=== PATIENT | male | born 1980 | race African-American/Black ===

== ENCOUNTER → 2016-09-22 | Outpatient (CLI) | payer OTHER ==
--- NOTE | 2016-09-22 13:25 | RAD ---
Right hip, 2 views, 09/22/2016: History: Hip and back pain No fracture or dislocation is identified. The right hip joint space is well-preserved. The periarticular soft tissues are unremarkable. IMPRESSION: No significant right hip abnormality is detected. Lumbar spine, 2 views, 09/22/2016: There is a mild right convexity thoracolumbar scoliosis. The lumbar vertebral heights are well-maintained. The left transverse process at L5 partially articulates with the upper aspect of the sacrum. The intervertebral disc spaces are well-maintained. The paraspinous soft tissues are unremarkable. IMPRESSION: 1. Mild thoracolumbar scoliosis. 2. Transitional-type vertebra at the lumbosacral junction. 3. No acute abnormality is detected.
== END | disposition home or self-care (01) ==
LOC: RAD 10:52
PROVIDERS: ATTEND Surgery
DX: M54.5 Low back pain (principal); M25.551 Pain in right hip; M41.85 Other forms of scoliosis, thoracolumbar region
CPT/HCPCS: 72100; 73502